=== PATIENT | female | born 1970 | race Caucasian/White ===

== ENCOUNTER 2016-07-27 15:08 | Emergency (ER) | payer BC, OTHER ==
[2016-07-27 15:59] VITALS: BP 139/86; PULSE 82; RESP 16; TEMP 98.4; O2SAT 93
--- NOTE | 2016-07-27 16:42 | UCPHY ---
H & P Time Seen by Provider: 07/27/16 16:30 Patient Type: New HPI/ROS: HPI: 45-year-old female presents to urgent care with chief concern facial and tooth pain. Reports nasal congestion and postnasal drip x2 weeks. Reports subjective fever myalgias over the past 24 hours. Denies ear pain, sore throat , dysphagia, shortness of breath, chest pain, abdominal pain, nausea, vomiting, diarrhea, rash. Using nasal rinses twice daily. Taking Zyrtec with minimal improvement. Has a history of asthma. Has not needed her inhaler. Flying tomorrow. ROS:10 point review of systems is negative other than as stated in HPI Past Medical/Surgical History: Allergies Asthma Smoking Status: Never smoked Physical Exam: Vital signs stable, reviewed by me General: Awake, alert, calm, cooperative. No acute distress. Head: Atraumatic. EENT: Conjuctiva mildly injected. TMs intact, without redness or bulging. Nasal mucosa is erythematous with moderate purulent discharge. Pharynx mildly erythematous. Uvula midline. No tonsillar abscess or exudates. Maxillary sinus tenderness to percussion. Respiratory: Breathing unlabored. Lungs clear to auscultation bilaterally. No accessory muscle use. CV: Heart rate regular. S1-S2 present. No murmur. GI: Abdomen soft, nontender. Bowel sounds positive x4 quadrants. : Deferred Skin: Warm, dry, intact. No rashes present. Capillary refill brisk. Musculoskeletal: Full ROM all extremities. Neuro: Alert oriented x3. Strength equal in all 4 extremities. Constitutional: Initial Vital Signs Temperature (C) 36.9 C 07/27/16 15:58 Heart Rate 82 07/27/16 15:58 Respiratory Rate 16 07/27/16 15:58 Blood Pressure 139/86 H 07/27/16 15:58 O2 Sat (%) 93 07/27/16 15:58 O2 Delivery Mode Room Air Home Medications: Medication Instructions Recorded Advair 100/50 (*) 07/27/16 Amoxicillin/Clavulanate Pot 875 mg PO BID #20 tab 07/27/16 [Augmentin 875 MG TAB (*)] Claritin 07/27/16 Pristiq 07/27/16 Medical Decision Making ED Course/Re-evaluation: 45-year-old female presents to urgent care with facial and tooth pain after 2 weeks of URI symptoms. She has no chest pain or shortness of breath. She has a history of asthma but has not required her albuterol inhaler. Vitals are stable. Differential Diagnosis: Sinusitis, upper respiratory infection, influenza, asthma exacerbation Departure - Departure Disposition: Home, Routine, Self-Care Clinical Impression: Sinusitis Qualifiers: Sinusitis location: maxillary Chronicity: acute Upper respiratory infection Qualifiers: URI type: unspecified viral URI Qualified Code(s): J06.9 - Acute upper respiratory infection, unspecified; B97.89 - Other viral agents as the cause of diseases classified elsewhere Condition: Good Instructions: Upper Respiratory Infection (ED), Sinusitis (ED) Additional Instructions: Plan: Antibiotic as prescribed for 10 days, take with food Take an [id number] probiotic and/or eat yogurt while taking this antibiotic. You may use 600 mg of ibuprofen every 6 hours for fever, inflammation, or pain. Always take ibuprofen with food and stay well hydrated while taking. Do not exceed the maximum allowable dose in a 24 hour period which is 2400 mg. You may use 1000mg of Tylenol every 8 hours. This may be staggered with the ibuprofen. Do not exceed the maximum dose in a 24 hour period which is 3 GM or 3000 mg. Use Flonase (nasal steroid) 2 puffs in each nostril first thing in the morning while symptoms persist. Use your albuterol inhaler 2 puffs every 4-6 hours for shortness of breath, wheezing. Use Afrin to each naris 1 hour before you fly and 1 [address] before you [address] Continue nasal washes twice daily with warm salt water Referrals: Kristen Epps DO [Primary Care Provider] - As per Instructions Prescriptions: Amoxicillin/Clavulanate Pot [Augmentin 875 MG TAB (*)] 875 mg PO BID #20 tab - PQRS PQRS Measurement: Not applicable
== END 2016-07-27 16:51 | disposition home or self-care (01) ==
LOC: CED 15:08
DX: J01.90 Acute sinusitis, unspecified (principal); J06.9 Acute upper respiratory infection, unspecified
CPT/HCPCS: 99203-PO; G0463-PO